=== PATIENT | female | born 1990 | race American Indian/Alaskan Native ===

== ENCOUNTER 2021-08-15 20:32 | Emergency (ER) | payer SELFPAY ==
[2021-08-15 22:06] VITALS: BP 143/92
[2021-08-15] MEDS ORDERED: ONDANSETRON 4 MG ODT TAB PO ONE (23:31)
[2021-08-15] MEDS ORDERED: KETOROLAC 30 MG/1 ML INJ IM ONE (23:31)
[2021-08-15] MEDS ORDERED: AMOXICILLIN/K CLAV 875/125MG TAB PO ONE (23:31)
[2021-08-15] MEDS ORDERED: HYDROcodone/ACETAMINOPHEN 5-325 MG TAB PO ONE (23:31)
--- NOTE | 2021-08-16 00:13 | Emergency Department Report ---
ED ENT HPI - General Chief complaint: Dental/Oral Stated complaint: GUM PAIN Source: patient Mode of arrival: Ambulatory Limitations: No Limitations - Related Data Allergies Allergy/AdvReac Type Severity Reaction Status Date / Time No Known Allergies Allergy Verified 08/15/21 22:01 ED Dental HPI - General Chief complaint: Dental/Oral Stated complaint: GUM PAIN Source: patient Mode of arrival: Ambulatory Limitations: No Limitations - Related Data Allergies Allergy/AdvReac Type Severity Reaction Status Date / Time No Known Allergies Allergy Verified 08/15/21 22:01 ED Review of Systems ROS: Stated complaint: GUM PAIN Other details as noted in HPI ED Past Medical Hx - Past Medical History Previous Medical History?: Yes Additional medical history: Anemia - Surgical History Past Surgical History?: Yes Additional Surgical History: c-sec x 4 ED Physical Exam - General Limitations: No Limitations ED Course Vital Signs 08/15/21 22:01 Temperature 99.1 F Pulse Rate 111 H Respiratory 17 Rate Blood Pressure 143/92 [Right] O2 Sat by Pulse 99 Oximetry Critical care attestation.: If time is entered above; I have spent that time in minutes in the direct care of this critically ill patient, excluding procedure time. ED Disposition Condition: Stable
--- NOTE | 2021-08-16 00:21 | Emergency Department Report ---
ED General Adult HPI - General Chief complaint: Dental/Oral Stated complaint: GUM PAIN Source: patient Mode of arrival: Ambulatory Limitations: No Limitations - History of Present Illness Initial comments: Patient is a 30-year-old -[place] female with a history of iron deficiency anemia who presents to the ED with complaint of acute onset persistent painful swollen left maxillary gingiva with severe tooth ache for the last 2 days. Patient states that she has been taking [id number] medications with no relief. Patient denies fever, chills, cough, headache, diz ziness, syncope, sore throat, nasal and sinus congestion, nausea and vomiting or diarrhea, abdominal pain, traumatic injury, chest pain or shortness of breath. MD Complaint: Left maxillary gingival pain and swelling -: Sudden, days(s) (2) Location: mouth Radiation: non-radiation Severity scale (0 -10): 7 Quality: aching, sharp Consistency: constant Improves with: none Associated Symptoms: denies other symptoms. denies: confusion, chest pain, cough, diaphoresis, fever/chills, headaches, loss of appetite, malaise, nausea/vomiting, rash, seizure, shortness of breath, syncope, weakness Treatments Prior to Arrival: none - Related Data Previous Rx's Medication Instructions Recorded Last Taken Type Clindamycin [Clindamycin CAP] 300 mg PO Q8H #30 cap 08/16/21 Unknown Rx Ketorolac [Toradol] 10 mg PO Q6H PRN #20 tab 08/16/21 Unknown Rx traMADoL [Ultram] 50 mg PO Q6HR PRN #12 tablet 08/16/21 Unknown Rx Allergies Allergy/AdvReac Type Severity Reaction Status Date / Time No Known Allergies Allergy Verified 08/15/21 22:01 ED Review of Systems ROS: Stated complaint: GUM PAIN Other details as noted in HPI Constitutional: denies: chills, fever Eyes: denies: eye pain, eye discharge, vision change ENT: dental pain, other (left maxillary gingiva). denies: ear pain, throat pain Respiratory: denies: cough, shortness of breath, wheezing Cardiovascular: denies: chest pain, palpitations Endocrine: no symptoms reported Gastrointestinal: denies: abdominal pain, nausea, diarrhea Genitourinary: denies: urgency, dysuria, discharge Musculoskeletal: denies: back pain, joint swelling, arthralgia Skin: denies: rash, lesions Neurological: denies: headache, weakness, paresthesias Psychiatric: denies: anxiety, depression Hematological/Lymphatic: denies: easy bleeding, easy bruising ED Past Medical Hx - Past Medical History Previous Medical History?: Yes Additional medical history: Anemia - Surgical History Past Surgical History?: Yes Additional Surgical History: c-sec x 4 - Medications Home Medications: Home Medications Medication Instructions Recorded Confirmed Last Taken Type Clindamycin [Clindamycin CAP] 300 mg PO Q8H #30 cap 08/16/21 Unknown Rx Ketorolac [Toradol] 10 mg PO Q6H PRN #20 tab 08/16/21 Unknown Rx traMADoL [Ultram] 50 mg PO Q6HR PRN #12 tablet 08/16/21 Unknown Rx ED Physical Exam - General Limitations: No Limitations General appearance: alert, in no apparent distress - Head Head exam: Present: atraumatic, normocephalic, normal inspection - Eye Eye exam: Present: normal appearance, PERRL, EOMI Pupils: Present: normal accommodation - ENT ENT exam: Present: mucous membranes moist, TM's normal bilaterally, normal exter nal ear exam, other (Swollen, tender left maxillary gingiva; tender left maxillary premolar molar teeth) - Neck Neck exam: Present: normal inspection, full ROM. Absent: tenderness, lymphadenopathy - Respiratory Respiratory exam: Present: normal lung sounds bilaterally. Absent: respiratory distress, wheezes, rhonchi, stridor, chest wall tenderness, other - Cardiovascular Cardiovascular Exam: Present: normal rhythm, tachycardia, normal heart sounds. Absent: systolic murmur, diastolic murmur, rubs, gallop - GI/Abdominal GI/Abdominal exam: Present: soft, normal bowel sounds. Absent: tenderness, guarding, rebound, hyperactive bowel sounds, hypoactive bowel sounds - Extremities Exam Extremities exam: Present: normal inspection, full ROM, normal capillary refill. Absent: tenderness - Back Exam Back exam: Present: normal inspection, full ROM. Absent: tenderness, CVA tenderness (R), CVA tenderness (L), muscle spasm, paraspinal tenderness, vertebral tenderness - Neurological Exam Neurological exam: Present: alert, oriented X3, CN II-XII intact, normal gait, reflexes normal - Psychiatric Psychiatric exam: Present: normal affect, normal mood - Skin Skin exam: Present: warm, dry, intact, normal color. Absent: rash ED Course Vital Signs 03/07/22 22:01 Temperature 99.1 F Pulse Rate 111 H Respiratory 17 Rate Blood Pressure 143/92 [Right] O2 Sat by Pulse 99 Oximetry ED Medical Decision Making - Medical Decision Making This is a 30-year-old -[place] female with a history of iron deficiency anemia who presents to the ED with complaint of acute onset persistent painful swollen left maxillary gingiva with severe tooth ache for the last 2 days. Patient states that she has been taking [id number] medications with no relief. In the ED, patient is alert and oriented x3 and is not in any distress. Patient is tachycardic but afebrile in triage. Patient was treated for pain in the ED and also given initial oral antibiotics. On reevaluation, patient's pain is well controlled medication. Patient was discharged home on pain medications and antibiotics and advised to follow-up with her dentist in 7 to 10 days for reevaluation or return to the ED immediately if symptoms get worse. - Differential Diagnosis Dental abscess; gingivitis; dental caries; Critical care attestation.: If time is entered above; I have spent that time in minutes in the direct care of this critically ill patient, excluding procedure time. ED Disposition Clinical Impression: Dental abscess, Acute gingivitis, Dental caries Disposition: HOME / SELF CARE / HOMELESS Is pt being admited?: No Does the pt Need Aspirin: No Condition: Stable Instructions: Dental Abscess, [id number], Trench Mouth Additional Instructions: Take medication with food, drink plenty of fluids and follow-up with your dentist in 7 to 10 days for reevaluation. Return to the ED immediately if symptoms get worse. Prescriptions: Clindamycin [Clindamycin CAP] 300 mg PO Q8H #30 cap Ketorolac [Toradol] 10 mg PO Q6H PRN #20 tab PRN Reason: Pain traMADoL [Ultram] 50 mg PO Q6HR PRN #12 tablet PRN Reason: Pain Referrals: [facility] [Provider Group] - 7-10 days [facility] [Outside] - 7-10 days Time of Disposition: 00:22 Print Language: KAZAKH
== END 2021-08-16 01:16 | disposition home or self-care (01) ==
LOC: ED 20:32
DX: K04.7 Periapical abscess without sinus (principal); K05.00 Acute gingivitis, plaque induced; K02.9 Dental caries, unspecified
CPT/HCPCS: 96372; 99282; J1885; J3490; Q0162

== ENCOUNTER 2022-02-20 18:11 | Emergency (ER) | payer SELFPAY ==
[2022-02-21] MEDS ORDERED: LIDOCAINE VISCOUS 2% 15 ML ORAL LIQD MM ONE (00:04)
[2022-02-21] MEDS ORDERED: oxyCODONE /ACETAMINOPHEN 5-325MG TAB PO ONE (00:04)
--- NOTE | 2022-02-21 02:03 | Emergency Department Report ---
ED ENT HPI - General Chief complaint: Dental/Oral Stated complaint: TOOTHACHE Time Seen by Provider: 02/20/22 23:54 Source: patient Mode of arrival: Ambulatory Limitations: No Limitations - History of Present Illness Initial comments: 28-year-old female [facility] emerged department complaining of dental pain to the left lower molar region of acute on chronic and in nature. Reports no hemoptysis symptoms hematochezia, no odynophagia or dysphagia no acute dental trauma MD complaint: tooth pain -: Gradual, days(s) (3) Severity: moderate, severe Improves with: none Worsens with: none Context- Dental: history of dental caries, poor dental care Associated Symptoms: toothache. denies: sore throat, tinnitus, discharge from ear - Related Data Previous Rx's Medication Instructions Recorded Last Taken Type Clindamycin [Clindamycin CAP] 300 mg PO Q8H #30 cap 08/16/21 Unknown Rx Ketorolac [Toradol] 10 mg PO Q6H PRN #20 tab 08/16/21 Unknown Rx traMADoL [Ultram] 50 mg PO Q6HR PRN #12 tablet 08/16/21 Unknown Rx Amoxicillin [Amoxicillin TAB] 875 mg PO BID #20 02/21/22 Unknown Rx Ketorolac [Toradol] 10 mg PO Q6H PRN #14 02/21/22 Unknown Rx Allergies Allergy/AdvReac Type Severity Reaction Status Date / Time No Known Allergies Allergy Verified 08/15/21 22:01 ED Dental HPI - General Chief complaint: Dental/Oral Stated complaint: TOOTHACHE Time Seen by Provider: 02/20/22 23:54 Source: patient Mode of arrival: Ambulatory Limitations: No Limitations - Related Data Previous Rx's Medication Instructions Recorded Last Taken Type Clindamycin [Clindamycin CAP] 300 mg PO Q8H #30 cap 08/16/21 Unknown Rx Ketorolac [Toradol] 10 mg PO Q6H PRN #20 tab 08/16/21 Unknown Rx traMADoL [Ultram] 50 mg PO Q6HR PRN #12 tablet 08/16/21 Unknown Rx Amoxicillin [Amoxicillin TAB] 875 mg PO BID #20 02/21/22 Unknown Rx Ketorolac [Toradol] 10 mg PO Q6H PRN #14 02/21/22 Unknown Rx Allergies Allergy/AdvReac Type Severity Reaction Status Date / Time No Known Allergies Allergy Verified 08/15/21 22:01 ED Review of Systems ROS: Stated complaint: TOOTHACHE Other details as noted in HPI Comment: All other systems reviewed and negative ED Past Medical Hx - Past Medical History Additional medical history: Anemia - Surgical History Additional Surgical History: c-sec x 4 - Medications Home Medications: Home Medications Medication Instructions Recorded Confirmed Last Taken Type Clindamycin [Clindamycin CAP] 300 mg PO Q8H #30 cap 08/16/21 Unknown Rx Ketorolac [Toradol] 10 mg PO Q6H PRN #20 tab 08/16/21 Unknown Rx traMADoL [Ultram] 50 mg PO Q6HR PRN #12 tablet 08/16/21 Unknown Rx Amoxicillin [Amoxicillin TAB] 875 mg PO BID #20 02/21/22 Unknown Rx Ketorolac [Toradol] 10 mg PO Q6H PRN #14 02/21/22 Unknown Rx ED Physical Exam - General Limitations: No Limitations General appearance: alert, in no apparent distress - Head Head exam: Present: atraumatic, normocephalic - Eye Eye exam: Present: normal appearance - ENT ENT exam: Present: mucous membranes moist, other (Diffuse dental caries noted with significant erosion from multiple areas. There is pain to the left lower molar with significant erosion. There are some adjacent gingival erythema noted. No abscesses present. Tongue and uvula are midline. Airway is patent. No abdomen no abscess no exudate. ) - Neck Neck exam: Present: normal inspection. Absent: lymphadenopathy - Respiratory Respiratory exam: Present: normal lung sounds bilaterally. Absent: respiratory distress, rales, rhonchi - Cardiovascular Cardiovascular Exam: Present: regular rate, normal rhythm. Absent: systolic murmur, diastolic murmur, rubs, gallop - GI/Abdominal GI/Abdominal exam: Present: soft, normal bowel sounds - Extremities Exam Extremities exam: Present: normal inspection - Back Exam Back exam: Present: normal inspection. Absent: CVA tenderness (R), CVA tenderness (L) - Neurological Exam Neurological exam: Present: alert, oriented X3, CN II-XII intact - Psychiatric Psychiatric exam: Present: normal affect, normal mood - Skin Skin exam: Present: warm, dry, intact, normal color. Absent: rash ED Course Vital Signs 02/20/22 20:44 Temperature 99.2 F Pulse Rate 86 Respiratory 19 Rate Blood Pressure 130/92 [Right] O2 Sat by Pulse 100 Oximetry Critical care attestation.: If time is entered above; I have spent that time in minutes in the direct care of this critically ill patient, excluding procedure time. ED Disposition Clinical Impression: Infected dental caries Disposition: HOME / SELF CARE / HOMELESS Is pt being admited?: No Does the pt Need Aspirin: No Condition: Stable Instructions: Dental Abscess, [id number], Preventive Dental Care, Adult, Dental Extraction, Care After, [id number] Prescriptions: Amoxicillin [Amoxicillin TAB] 875 mg PO BID #20 Ketorolac [Toradol] 10 mg PO Q6H PRN #14 PRN Reason: Pain Referrals: [facility] [Outside] - 3-5 Days
[2022-02-21 02:15] VITALS: BP 136/91
== END 2022-02-21 02:15 | disposition home or self-care (01) ==
LOC: ED 18:11
DX: K02.9 Dental caries, unspecified (principal); Z98.890 Other specified postprocedural states; Z79.899 Other long term (current) drug therapy
CPT/HCPCS: 99282